=== PATIENT | male | born 1990 | race Caucasian/White ===

== ENCOUNTER → 2019-03-17 14:13 | Outpatient (CLI) | payer OTHER, SELFPAY ==
[2019-03-17 14:52] LABS: Hematocrit 44.1 % (40-54); Mean Corpuscular Hgb 29.9 pg (27.0-32.0); Mean Corpuscular Volume 87.8 fL (80-94); Mean Platelet Vol. 9.1 fl (6.2-12.0); Platelet Count 245 K/mm3 (150-450); RBC Distribution Width CV 12.6 % (11.6-14.6); RBC Distribution Width SD 40.3 fl (35.1-43.9); Red Blood Count 5.02 M/mm3 (4.6-6.2); White Blood Count 8.8 K/mm3 (4.4-11.0)
[2019-03-17 15:14] LABS: AST(SGOT) 12 U/L (15-37); Alanine Aminotransfer ALT/SGPT 31 U/L (16-61); Albumin, Serum 4.1 g/dL (3.2-5.0); Alkaline Phosphatase 82 U/L (45-117); Anion Gap 4 (5-15); BUN 15 mg/dL (7-18); BUN/Creat Ratio 14.7 RATIO (10-20); Bilirubin, Direct 0.09 mg/dL (0.00-0.30); Calcium,Total 8.6 mg/dL (8.5-10.1); Chloride 110 mmol/L (98-107); Creatinine, Serum 1.02 mg/dL (0.70-1.30); EST Glomerular Filtration Rate 92 mL/min (>60); Est Glom Filt Rate - Afr Amer 111 mL/min (>60); Globulin 4.1 g/dL (2.2-4.2); Glucose 88 mg/dL (74-106); Potassium 3.4 mmol/L (3.5-5.1); Protein, Total 8.2 g/dL (6.4-8.2); Sodium Level 138 mmol/L (136-145)
[2019-03-21 17:20] LABS: Topiramate 4.2 ug/mL (2.0-25.0)
== END ==
PROVIDERS: Family Provider Family Medicine; PCP Family Medicine; Referring Provider Nurse Practitioner Family; Visit Provider Nurse Practitioner Family
DX: R56.9 Unspecified convulsions (principal)
CPT/HCPCS: 36415; 80048; 80076; 80201; 85027

== ENCOUNTER 2020-12-12 10:50 | Outpatient (RCR) | payer OTHER, SELFPAY ==
[2014-08-17 13:33] VITALS: BMI 22.8
== END 2021-02-04 23:59 ==
LOC: IMMUN 10:50
PROVIDERS: PCP Family Medicine; Referring Provider Family Medicine; Visit Provider Family Medicine
DX: Z23 Encounter for immunization (principal)
CPT/HCPCS: 0001A; 0002A; 91300

== ENCOUNTER 2023-11-27 14:20 | Emergency (ER) | payer OTHER, SELFPAY ==
[2023-11-27 14:22] VITALS: BP 138/90; PULSE 90; RESP 16; TEMP 36.3; O2SAT 98; BMI 29.7
[2023-11-27 14:32] VITALS: O2SAT 99
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
== END 2023-11-27 15:32 | disposition home or self-care (01) ==
PROVIDERS: Emergency Provider Emergency Medicine; PCP Family Medicine; Visit Provider Emergency Medicine
DX: S30.1XXA Contusion of abdominal wall, initial encounter (principal); V43.62XA Car passenger injured in collision with other type car in traffic accident, initial encounter; W22.10XA Striking against or struck by unspecified automobile airbag, initial encounter; Y92.410 Unspecified street and highway as the place of occurrence of the external cause
CPT/HCPCS: 99282

== ENCOUNTER 2025-04-14 05:21 | Emergency (ER) | payer OTHER, SELFPAY ==
[2025-04-14 05:22] VITALS: BP 150/84; PULSE 96; RESP 20; TEMP 36.7; O2SAT 99; BMI 30.2
--- NOTE | 2025-04-14 05:32 | ED.VIS.DYS ---
HPI History of Present Illness Chief Complaint: Asthma Informant: patient Narrative Narrative: Patient woke up this morning within the last hour to coughing, wheezing, feel like his asthma is flared up which he has a history of. He denies any fevers or chills. No obvious etiology or chemical inhalation. No chest discomfort, neck discomfort, headache, GI symptoms, peripheral swelling. He tried to use his albuterol inhaler but the medication part of it was missing, so he has no treatment at home hence coming to the ER. No known sick contacts. [facility] Medical History Asthma History of kidney stones Seizures Home Medications ?Medication ?Instructions ?Recorded ?Last Taken ?Type sertraline 100 mg tablet 150 mg PO QDAY 02/27/25 Unknown History topiramate 100 mg tablet 100 mg PO BID 02/27/25 Unknown History topiramate 50 mg tablet 50 mg PO BID 02/27/25 Unknown History lamotrigine 25 mg tablet 25 mg PO .COMPLEX #180 tabs 03/01/25 Unknown Rx omeprazole 20 mg capsule,delayed 20 mg PO DAILY 04/14/25 Unknown History release prednisone 20 mg tablet 40 mg (2 x 20 mg) PO DAILY 5 days 04/14/25 Unknown Rx #10 tabs Allergy/AdvReac Type Severity Reaction Status Date / Time latex Allergy Mild Hives Verified 02/27/25 08:02 Family History (Updated 02/27/25 @ 08:06 by Sintia Shirley) Mother Heart disease valve repair Father Heart disease Social History household members: spouse and children current occupational status: employed 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 pets and animals: Yes pets and animals: cat(s) Smoking Status: Never smoker Electronic Cigarette Use: not used alcohol intake: never caffeine: No do you feel safe at home: Yes ROS ROS ED Constitutional Constitutional ED: Denies chills or fever(s) Eyes Eyes: Denies change in vision or diplopia ENT ENT ED: Denies rhinorrhea or sore throat Cardiovascular Cardiovascular: Denies chest pain, leg edema, palpitations or syncope Respiratory/Chest Respiratory/Chest: Reports cough, dyspnea and wheezing; Denies sputum Gastrointestinal Gastrointestinal: Denies abdominal pain, diarrhea, nausea or vomiting Genitourinary Genitourinary ED: Denies dysuria or hematuria Musculoskeletal Musculoskeletal: Denies back pain or neck pain Integumentary Denies abscess or rash Neurologic Neurologic: Denies headache(s), paresthesias or weakness Psychiatric Psychiatric: Denies anxiety or suicidal thoughts EXAM Physical Exam Const Vital Signs: 04/14/25 05:22 04/14/25 05:25 04/14/25 05:37 Temperature 98.1 F Temperature Source Oral Pulse Rate 96 87 Respiratory Rate 20 H 16 Respiratory Depth Normal Respiratory Pattern Tachypnea Normal Blood Pressure 150/84 H Blood Pressure Mean 106 Pulse Ox 99 Oxygen Delivery Method Room Air Room Air 04/14/25 06:39 Temperature 98.1 F Temperature Source Pulse Rate 97 Respiratory Rate 14 Respiratory Depth Respiratory Pattern Blood Pressure 140/76 H Blood Pressure Mean 97 Pulse Ox 100 Oxygen Delivery Method Positive well nourished and well developed General Appearance ED: well developed and NAD HEENT Reports moist mucous membranes normocephalic and atraumatic Eyes PERRL and EOMs intact bilaterally Neck full ROM and supple Resp Resp Narrative: Normal respiratory effort unless has a bronchospasm. Expiratory wheezes with coughing only all lung fontanez otherwise clear and equal. Cardio regular rate, regular rhythm and no murmurs GI non-tender and non-distended Auscultation: normoactive bowel sounds Palpation: soft Back/Spine no CVA tenderness General Back: other FROM Extremity normal to inspection General Extremety ED: Negative for edema, pulses abnormal or tenderness General Extremity: Negative for edema or pulses abnormal Neuro oriented x3, CN's II-XII intact bilaterally and no sensory deficits noted Sensorium / Orientation: awake and alert Motor Exam: strength 5/5 throughout Skin no rashes or lesions noted and no wounds MDM MDM MDM Narrative Medical decision making narrative: Patient was given a couple nebulizer treatments which really helped open him up and make him feel better. Endometrium a two-view chest x-ray was obtained and on my interpretation shows no evidence of pneumonia or pneumothorax. Radiology in agreement. 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 He was also given an inhaler so he has a rescue inhaler to use at home. Radiography Diagnostic Testing: Clinical Impression(s) from Imaging Studies Chest X-Ray 04/14/25 06:23 IMPRESSION: Hyperexpanded lungs, possibly secondary to small airway disease/asthma. [facility] T[facility] Chief Complaint: Asthma ED Provider: Watson Wayne Dx/Rx/DC Orders Clinical Impression: Acute asthma exacerbation, Acute cough Instructions: ED Asthma, Acute (Adult) Prescriptions: New prednisone 20 mg tablet 40 mg PO DAILY 5 Days Qty: 10 0RF No Action topiramate 100 mg tablet 100 mg PO BID topiramate 50 mg tablet 50 mg PO BID sertraline 100 mg tablet 150 mg PO QDAY omeprazole 20 mg capsule,delayed release(DR/EC) 20 mg PO DAILY lamotrigine 25 mg tablet 25 mg PO .COMPLEX Qty: 180 3RF Rx Instructions: Take 1 tab PO BID x7 days then 2 tabs BID x 14 days then 3 tablets twice daily thereafter. Stand Alone Forms: ED Work / School Excuse Primary Care Provider: Edson Tran Referrals: Edson Tran MD [Primary Care Provider] - 1 Week if not improving Print Language: Romanian Disposition Disposition: Home, Self Care Discharge Date/Time: 04/14/25 06:40
[2025-04-14 05:37] VITALS: PULSE 87; RESP 16
[2025-04-14] MEDS: Albuterol 2.5 MG/3 ML VIAL.NEB. INHALATION (05:37)
--- OUTSIDE RECORDS SUMMARY | 2025-04-14 05:40 | XMS RPT_ITS | CCD ---
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 other refills are due, in the near future, with this provider at this time: Yes NOTE; PATIENT NEUROLOGIST HAS MOVED TO [place]. CAN PCP PRESCRIBE THIS MEDICATION? The last office visit in the department: 09/13/2023 Does the patient have a future office visit with this provider/department: Yes Requested Prescriptions Pending Prescriptions Disp Refills topiramate (TOPAMAX) 100 mg tablet 180 tablet 1 Sig: Take 1 tablet by mouth two times a day. topiramate (TOPAMAX) 50 mg tablet 180 tablet 1 Sig: Take 1 tablet by mouth two times a day. Cheryl Tan February 05, 2025 9:15 AM documented in this encounter [facility] 02-06-2025 Telephone encounter Note Patient calling to inform Dr. Khan that he has an appt with [facility] on 02/27/25. Asking for provider to refill his medications to last him until then. Patient would like a call back with an update. Tashia Beltre RN T [facility] 02-06-2025 Telephone encounter Note Patient stopped by and advised he did go to [facility] and they have are getting the patient's records and as soon as provider reviews they will schedule. Patient was told it could be May but they will try to get him in sooner. Patient did go to the pharmacy and they had given him a emergency supply he is out again. Mary Beth Smith MA T [facility] 02-06-2025 Telephone encounter Note Patient calls and message below reviewed. Patient reports that Dr. Burgos didn't give him any notice and the office is closed and phone number is no longer in service. Patient is calling to see if he can get in with [facility] and asking if provider would fill prescription until able to be seen by a new provider. Patient to call back once has neurology appt set up. Hellen Payne RN T [facility] 02-05-2025 Telephone encounter Note Advise patient he needs to contact the office Dr. Burgos was in to see who is taking over his care and refilling his meds. [facility] 02-05-2025 Telephone encounter Note Sent my chart to patient. Mary Beth Smith MA [facility] 02-05-2025 Telephone encounter Note Prescription Refill Information The patient has been identified by name and date of : Yes Caregiver verified no other encounters exist for this prescription request: Yes Caregiver confirmed with patient/requestor that no other refills are due, in the near future, with this provider at this time: Yes NOTE; PATIENT NEUROLOGIST HAS MOVED TO [place]. CAN PCP PRESCRIBE THIS MEDICATION? The last office visit in the department: 09/13/2023 Does the patient have a future office visit with this provider/department: Yes Requested Prescriptions Pending Prescriptions Disp Refills topiramate (TOPAMAX) 100 mg tablet 180 tablet 1 Sig: Take 1 tablet by mouth two times a day. topiramate (TOPAMAX) 50 mg tablet 180 tablet 1 Sig: Take 1 tablet by mouth two times a day. Cheryl Tan February 05, 2025 9:15 AM [facility] 09-13-2024 Note HNO ID: [id number] Author: EDEL KHAN MD Service: ? Author Type: Physician Type: Progress Notes Filed: 09/13/2024 16:53 Note Text: Chief Complaint Patient presents with: Physical HPI Natali Gray is a 33 year old male who presents here today for Physical. Patient with hx of GERD, Seizures seeing Neuro, Asthma, PRESLEY, as well as those reviewed and addressed below and in ROS. Patient has been doing ok. Continues to see Neuro for management of his seizures. No new issues or concerns. Past medical history, appointments, medications, allergies reviewed. Previous Medical History PAST MEDICAL HISTORY Diagnosis Date Attention deficit disorder without mention of hyperactivity PRESLEY (generalized anxiety disorder) 11/08/2020 GERD without esophagitis 11/08/2020 History of kidney stones 03/04/2016 Kidney stone 07/2014 [facility] ER, CT left 2 mm distal ureteral [...] gums normal, oropharynx normal. Neck: Supple, no (more content not included)... [facility] 09-13-2024 History of Presen t illness Narrative Chief Complaint Patient presents with: Physical HPI Natali Gray is a 33 year old male who presents here today for Physical. Patient with hx of GERD, Seizures seeing Neuro, Asthma, PRESLEY, as well as those reviewed and addressed below and in ROS. Patient has been doing ok. Continues to see Neuro for management of his seizures. No new issues or concerns. Past medical history, appointments, medications, allergies reviewed. Previous Medical History PAST MEDICAL HISTORY Diagnosis Date Attention deficit disorder without mention of hyperactivity PRESLEY (generalized anxiety disorder) 11/08/2020 GERD without esophagitis 11/08/2020 History of kidney stones 03/04/2016 Kidney stone 07/2014 [facility] ER, CT left 2 mm distal ureteral [...] Wt 100.7 kg (222 lb) BMI 30.53 kg/m BP 112/68 Pulse 82 Resp 18 Ht 181.6 cm (5' 11.5) Wt 100.7 kg (222 lb) BMI 30.53 kg/m Last 5 Encounter Wt Readings: Date: Wt: [...] and benefit of weight loss. BMI 30.53 kg/(m^2) - Patient counseled on and acknowledged vaccine [...] medications - Avoidance of triggers recommended 4. PRESLEY (generalized anxiety disorder) - ICD9: 300.02, ICD10: [...] TRIVALENT (AFLURIA, FLULAVAL, FLUVIRIN, FLUZONE): given - DJZ COVID-19 VACCINE AGE 12+ YR (COMIRNATY): given [...] or sooner if issues. Edel Khan MD documented in this encounter [facility] 07-05-2024 History of Presen t illness Narrative Radiology Service Progress Note PATIENT NAME: Natali Gray DATE OF SERVICE: July 05, 2024 TIME: [...] PATIENT PRESENTS WITH AN IMPLANTABLE OR ATTACHED CUTTER APPRENTICE HAND: No RADIOLOGY DEPARTMENT: General X-ray: Exam(s) Completed: Chest X-Ray PERIPHERAL IV DATA: Not applicable SIGNED BY: RT Anibal(Amira) July 05, 2024 11:18 AM documented in this encounter [facility] 07-05-2024 Note HNO ID: [id number] Author: ALEJANDRA MCNAMARA RT(Amira) Service: Radiology Author Type: Technologist Type: Progress Notes Filed: 07/05/2024 11:23 Note Text: Radiology Service Progress Note PATIENT NAME: Natali Gray DATE OF SERVICE: July 05, 2024 TIME: [...] PATIENT PRESENTS WITH AN IMPLANTABLE OR ATTACHED CUTTER APPRENTICE HAND: No RADIOLOGY DEPARTMENT: General X-ray: Exam(s) Completed: Chest X-Ray PERIPHERAL IV DATA: Not applicable SIGNED BY: RT Anibal(R) July 05, 2024 11:18 AM [facility] 07-05-2024 Note HNO ID: [id number] Author: ROBERTA SMITH APRN.CAREER BASED INTERVENTION COORDINATOR Service: ? Author Type: Nurse Practitioner Type: Progress Notes Filed: 07/05/2024 11:40 Note Text: CC: Patient presents with: Chest Congestion: cough x 4 days HPI: Natali Gray is a 33 year old male who [...] Attention deficit disorder without mention of hyperactivity PRESLEY (generalized anxiety disorder) 11/08/2020 GERD without esophagitis 11/08/2020 History of kidney stones 03/04/2016 Kidney stone 07/2014 [facility] ER, CT left 2 mm distal ureteral [...] and infrahilar reticular opacities suspect for bronchopneumonia.. Supervisor Aircraft Cleaning: RAUL Transcribe Date/Time: Jul 05 2024 11:23A [...] Patient agreeable to treatment plan. Roberta Smith APRN.[facility] 07-05-2024 History of Presen t illness Narrative CC: Patient presents with: Chest Congestion: cough x 4 days HPI: Natali Gray is a 33 year old male who [...] BP 136/80 Pulse (!) 122 Temp 37.5 C (99.5 F) Resp 16 Wt 99.8 kg (220 lb 0.3 oz) SpO2 96% BMI 30.69 kg/m General appearance: alert, cooperative, pleasant, in no [...] Attention deficit disorder without mention of hyperactivity PRESLEY (generalized anxiety disorder) 11/08/2020 GERD without esophagitis 11/08/2020 History of kidney stones 03/04/2016 Kidney stone 07/2014 [facility] ER, CT left 2 mm distal ureteral [...] * EXAMINATION: CHEST RADIOGRAPH (2 VIEW FRONTAL & LATERAL) CLINICAL HISTORY: Acute cough MQ: [id number] EXAM DATE/TIME: 07/05/2024 11:22 AM COMPARISON: Remote chest x-ray dated 10/31/2007 RESULT: Lines, tubes, and devices: None. Lungs and pleura: Left infrahilar reticular opacities suspect for bronchopneumonia.. No pleural effusion. No pneumothorax. Cardiomediastinal silhouette: Normal cardiomediastinal silhouette. Bones and soft tissues: No acute abnormality. IMPRESSION IMPRESSION: Left and infrahilar reticular opacities suspect for bronchopneumonia.. Supervisor Aircraft Cleaning: RAUL Transcribe Date/Time: Jul 05 2024 11:23A [...] Patient agreeable to treatment plan. Roberta Smith APRN.[facility] documented in this encounter [facility] 04-10-2024 Telephone encounter Note Prescription Refill Information The patient has been identified by name and date of : Yes Caregiver verified no other encounters exist for this prescription request: Yes Caregiver confirmed with patient/requestor that no other refills are due, in the near future, with this provider at this time: Yes The last office visit in the department: 08/2023 Does the patient have a future office visit with this provider/department: Yes 08/2024 Last refill: 08/2023 Requested Prescriptions Pending Prescriptions Disp Refills sertraline (ZOLOFT) 100 mg tablet 135 tablet 1 Sig: Take 1.5 tablets by mouth once daily. Mary Beth Smith MA April 10, 2024 10:31 AM [facility] 04-10-2024 Miscellaneous Notes Prescription Refill Information The patient has been identified by name and date of : Yes Caregiver verified no other encounters exist for this prescription request: Yes Caregiver confirmed with patient/requestor that no other refills are due, in the near future, with this provider at this time: Yes The last office visit in the department: 08/2023 Does the patient have a future office visit with this provider/department: Yes 08/2024 Last refill: 08/2023 Requested Prescriptions Pending Prescriptions Disp Refills sertraline (ZOLOFT) 100 mg tablet 135 tablet 1 Sig: Take 1.5 tablets by mouth once daily. Mary Beth Smith MA April 10, 2024 10:31 AM documented in this encounter [facility] 05-20-2023 Miscellaneous Notes Pt called and is notified of providers message and instructions. Pt voices understanding. Deya Beverly RN Received notification from [facility] for suspect kidney stone. I will send in 3 day script for pain medication as well as script for flomax which can help pass the stone. He should follow up with our office if symptoms worsen or go to ER over the weekend. Lisa Andres PA-C documented in this encounter [facility] 05-20-2023 History of Presen t illness Narrative Subjective HPI HPI Natali T Isaac is a 32 year old male who presents today for CC of right back/flank pain. This started 2 days ago. Has tried otc medication for relief. Symptoms are worsened by nothing. Risk factors hx of renal stones, this feels like renal stone per patient. .Patient presents with: Back Pain: Lower right side x 2 days PAST MEDICAL HISTORY Diagnosis Date Attention deficit disorder without mention of hyperactivity PRESLEY (generalized anxiety disorder) 11/08/2020 GERD without esophagitis 11/08/2020 History of kidney stones 03/04/2016 Kidney stone 07/2014 [facility] ER, CT left 2 mm distal ureteral stone, passed PMH - PAST MEDICAL HISTORY OF 11/23/1994 normal color vision Seizure disorder (HCC) 04/24/2014 PAST SURGICAL HISTORY Procedure Laterality Date PAST SURGICAL HISTORY OF wisdom teeth extraction PAST SURGICAL HISTORY OF 2018 forskin band clipped due to Phymosis ALLERGIES ? Latex [Other] and Enviromental [Other] MEDICATIONS naproxen (NAPROSYN) 500 mg tablet Take 1 tablet by mouth twice daily as needed. Take with food. sertraline (ZOLOFT) 100 mg tablet Take 1.5 tablets by mouth once daily. topiramate (TOPAMAX) 100 mg tablet Take 1 tablet by mouth twice daily. topiramate (TOPAMAX) 50 mg tablet Take 1 tablet by mouth twice daily. albuterol HFA (PROVENTIL HFA, VENTOLIN HFA) 90 mcg/actuation inhaler Inhale 2 Puffs as instructed every 6 hours as needed. (Patient not taking: Reported on 05/20/2023) FAMILY HISTORY Problem Relation Age of Onset [...] to 2nd hand smoke Vaping Use Vaping Use: Never used Substance Use Topics Alcohol use: Yes Comment: occassionally Drug use: No Review of Systems Constitutional: Negative for chills, fever and weight loss. Respiratory: Negative for cough, shortness of breath and wheezing. Cardiovascular: Negative for chest pain and palpitations. Gastrointestinal: Negative for abdominal pain, blood in stool, constipation, diarrhea, heartburn, melena, nausea and vomiting. Genitourinary: Positive for flank pain. Negative for dysuria, frequency, hematuria and urgency. Musculoskeletal: Negative for myalgias. Objective Blood pressure 148/86, pulse 68, temperature 36.6 C (97.8 F), resp. rate 20, weight 92 kg (202 lb 12.8 oz), SpO2 97 %. Physical Exam Constitutional: General: He is not in acute distress. Appearance: Normal appearance. He is not toxic-appearing. Cardiovascular: Rate and Rhythm: Normal rate and regular rhythm. Heart sounds: Normal heart sounds. Pulmonary: Effort: Pulmonary effort is normal. Breath sounds: Normal breath sounds. Abdominal: General: Bowel sounds are normal. Palpations: Abdomen is soft. Tenderness: There is no abdominal tenderness. There is right CVA tenderness. Skin: General: Skin is warm and dry. ASSESSMENT/PLAN: 1. Urination frequency - ICD9: 788.41, ICD10: R35.0 acute - UA positive for hematuria - notified pcp, will send medication Patient not toxic or in severe pain, if worsening s/s occur go to Er. - UA DIP, URINE (POC) Jayden Bautista APRN.CAREER BASED INTERVENTION COORDINATOR documented in this encounter [facility] 03-27-2023 Miscellaneous Notes ----- Message from Flavio Lowery MD sent at 03/27/2023 8:08 AM EDT ----- Xray negative for fracture or dislocation. Message left for patient to return call or see [employer] message for results. ----- Message from Flavio Lowery MD sent at 03/27/2023 8:08 AM EDT ----- Xray negative for fracture or dislocation. documented in this encounter [facility] 03-23-2023 History of Presen t illness Narrative Radiology Service Progress Note PATIENT NAME: Natali Gray DATE OF SERVICE: March 23, 2023 TIME: 3:20 PM PATIENT IDENTITY VERIFICATION COMPLETED USING TWO (2) IDENTIFIERS: Name and Date of confirmed by patient verbally. FALL SCREENING: Has the patient had 2 falls in the last year or 1 fall with injury or currently using an Ambulatory Assistive Device (Walker, Cane, Wheelchair, Crutches, etc.)? No PATIENT GENDER DATA: Male PATIENT RELEVANT IMPLANT DATA REVIEWED: Yes RADIOLOGY DEPARTMENT: General X-ray: Exam(s) Completed: Upper Extremity X-Ray(s): Shoulder, AP / TRUE AP / AXILLARY right and Wrist, right PERIPHERAL IV DATA: Not applicable SIGNED BY: RT Yogesh(R) March 23, 2023 3:20 PM documented in this encounter [facility] 02-25-2023 Miscellaneous Notes The following approved medication requests have been transmitted electronically. Requested Prescriptions Signed Prescriptions Disp Refills sertraline (ZOLOFT) 100 mg tablet 135 tablet 1 Sig: Take 1.5 tablets by mouth once daily. Authorizing Provider: EDEL KHAN MD Last office visit: 07/01/22 F/u scheduled: 03/04/23 Juana Salamanca Ma Patient has been identified by name and date of : Yes Requested Prescriptions Pending Prescriptions Disp Refills sertraline (ZOLOFT) 100 mg tablet 135 tablet 1 Sig: Take 1.5 tablets by mouth once daily. RX INSTRUCTIONS: Patient aware RX will be sent to pharmacy. No need to notify patient. Elizabeth Chapa Pss documented in this encounter [facility] 07-01-2022 Instructions Edel Khan MD - 07/01/2022 5:[address] Khan Know how you are doing with the zoloft change in 3-4 weeks via My Chart. documented in this encounter [facility] 07-01-2022 History of Earlene t illness Narrative Chief Complaint Patient presents with: Physical HPI Natali Gray is a 31 year old male who presents here today for Physical. Patient with hx of GERD, Seizures seeing Neuro, Asthma, PRESLEY, as well as those reviewed and addressed below and in ROS. Patient has noted some slight increase in depression but feeling like his anxiety is more uncontrolled. Past medical history, appointments, medications, allergies reviewed. Previous Medical History PAST MEDICAL HISTORY Diagnosis Date Attention deficit disorder without mention of hyperactivity PRESLEY (generalized anxiety disorder) 11/08/2020 GERD without esophagitis 11/08/2020 History of kidney stones 03/04/2016 Kidney stone 07/2014 [facility] ER, CT left 2 mm distal ureteral stone, passed PMH - PAST MEDICAL HISTORY OF 11/23/1994 normal color vision Seizure disorder (HCC) 04/24/2014 Previous Surgical History PAST SURGICAL HISTORY Procedure Laterality Date PAST SURGICAL HISTORY OF wisdom teeth extraction PAST SURGICAL HISTORY OF 2018 forskin band clipped due to Phymosis Family History FAMILY HISTORY Problem Relation Age of Onset Seizures Mother Hypertension Father Lipids Father Post-Traumatic Stress Disorder Father other (GERD) Father Psychiatry Brother depression Depression Brother Cancer Maternal Grandmother None Maternal Grandmother Cancer Maternal Grandfather lung Stroke Paternal Grandmother Prostate Cancer Paternal Grandfather Stroke Paternal Uncle Patient Allergies ALLERGIES Allergen Reactions ? Latex [Other] Rash Enviromental [Other] Unknown Current Medications Current Outpatient Medications on File Prior to Visit Medication Sig topiramate (TOPAMAX) 100 mg tablet Take 1 tablet by mouth twice daily. topiramate (TOPAMAX) 50 mg tablet Take 1 tablet by mouth twice daily. sertraline (ZOLOFT) 100 mg tablet Take 1 tablet by mouth once daily. omeprazole (PRILOSEC) 40 mg capsule Take 1 capsule by mouth daily before breakfast. 1/2 hr before meal. albuterol HFA (PROVENTIL HFA, VENTOLIN HFA) 90 mcg/actuation inhaler Inhale 2 Puffs as instructed every 6 hours as needed. No current facility-administered medications on file prior to visit. Social History Social History Tobacco Use Smoking status: Never Smokeless tobacco: Never Tobacco comments: exposed to 2nd hand smoke Vaping Use Vaping Use: Never used Substance Use Topics Alcohol use: Yes Comment: [...] No nausea, vomiting, or diarrhea and No frequent heartburn or reflux symptoms : No history of dysuria, blood MUSCULOSKELETAL: Negative for joint pain or swelling, back pain or muscle pain SKIN: Negative for lesions, rash, and itching PSYCH: See HPI HEMATOLOGY/LYMPHOLOGY: Negative for prolonged bleeding, bruising easily or swollen nodes ENDOCRINE: Negative for cold or heat intolerance, polyuria, polydipsia and goiter NEURO: No history of syncope, paralysis, seizures or tremors. EXAM: BP 150/80 (BP Site: Right Arm, BP Position: Sitting, BP Cuff Size: Regular Adult) Pulse 80 Resp 16 Wt 91.6 kg (202 lb) BMI 28.28 kg/m BP 136/72 Pulse 80 Resp 16 Wt 91.6 kg (202 lb) BMI 28.28 kg/m General Appearance: Well appearing, alert, in no acute distress, well-hydrated, well nourished.. Skin: Skin color, texture, turgor normal, no suspicious rashes or lesions. Head: Normocephalic, no masses, lesions, tenderness or abnormalities. Eyes: Anicteric sclera. Pupils are equally round and reactive to light. Extraocular movements are intact. . Ears: External ears normal, canals clear. Neck: Supple, no adenopathy; thyroid symmetric, normal [...] to palpation. No hernia.. Health Maintenance List PNEUMOCOCCAL(1 - PCV) Never done DEPRESSION ASSESSMENT Never done COVID-19 VACCINE(4 - Booster for Pfizer series) due on 02/06/2022 INFLUENZA(1) due on 04/30/2022 ANNUAL PCP TEAM CHRONIC DISEASE VISIT due on 12/12/2022 DTAP,TDAP,TD(8 - Td or Tdap) due on 05/23/2024 HEPATITIS B Completed SPIROMETRY Discontinued HEPATITIS C SCREENING Discontinued HIV SCREENING Discontinued Data reviewed A/P ASSESSMENT/PLAN: 1. Well adult exam - ICD9: V70.0, ICD10: Z00.00 (primary diagnosis) - Counseled on healthy diet and regular exercise - Patient was counseled [id number] by myself (the billing provider) for the following immunizations and vaccine components, including side effects: Influenza and Pneumococcal . Patient consents for immunization and understands risks and benefits. A VIS sheet on each immunization was given to the patient. - Follow up for annual exam in one year 2. GERD without esophagitis - ICD9: 530.81, ICD10: K21.9 - cont prn meds. 3. Mild intermittent asthma without complication - ICD9: 493.90, ICD10: J45.20 Mild intermittent Asthma stable - Avoidance of triggers recommended 4. PRESLEY (generalized anxiety disorder) - ICD9: 300.02, ICD10: F41.1 Will increase zoloft to 150 mg a day. Patient to update me in 3-4 weeks via My Chart. - SERTRALINE 100 MG TABLET 5. Seizure disorder (HCC) - ICD9: 345.90, ICD10: G40.909 - management per neurology 6. Screening for diabetes mellitus (DM) - ICD9: V77.1, ICD10: Z13.1 Check A1c 7. Medication management - ICD9: V58.69, ICD10: Z79.899 - check CBC 8. Encounter for lipid screening for cardiovascular disease - ICD9: V77.91, V81.2, ICD10: Z13.220, Z13.6 Check Lipid 9. Encounter for immunization - ICD9: V03.89, ICD10: Z23 - INFLUENZA VACCINE QUADRIVALENT 6 MO - 64 YRS IM: given - PNEUMOCOCCAL VACCINE (PREVNAR 20): given F/u in 6 months routine Edel Khan MD documented in this encounter [facility] 12-12-2021 History of Presen t illness Narrative This note was created using Wrappter. Subjective Patient presents with: Medication Follow-up Natali Gray is a 31 year old male patient of Edel Khan MD here for medication refill. His anxiety was generally controlled, and his dose has been stable. He had no side effects. We reviewed health maintenance and he was willing to have his Covid booster vaccine today. Review of Systems Constitutional: Negative. Psychiatric/Behavioral: Negative. ACTIVE PROBLEM LIST Seizure Disorder (Hcc) Asthma, Mild Intermittent History of Chicken Pox Well Adult Exam Screening for Diabetes Mellitus (Dm) History of Kidney Stones Presley (Generalized Anxiety Disorder) Gerd Without Esophagitis Medication Management Current Outpatient Medications Medication Sig topiramate (TOPAMAX) 100 mg tablet Take 1 tablet by mouth twice daily. topiramate (TOPAMAX) 50 mg tablet Take 1 tablet by mouth twice daily. sertraline (ZOLOFT) 100 mg tablet Take 1 tablet by mouth once daily. albuterol HFA (PROVENTIL HFA, VENTOLIN HFA) 90 mcg/actuation inhaler Inhale 2 Puffs as instructed every 6 hours as needed. ibuprofen (MOTRIN) 800 mg tablet Take 800 mg by mouth every 6 hours as needed. omeprazole (PRILOSEC) 40 mg capsule Take 1 capsule by mouth daily before breakfast. 1/2 hr before meal. No current facility-administered medications for this visit. Objective BP 136/78 Pulse 73 Temp 36.3 C (97.3 F) (Temporal) Resp 16 Wt 88.9 kg (196 lb) SpO2 97% BMI 27.44 kg/m Physical Exam Constitutional: Appearance: Normal appearance. He is not ill-appearing. Psychiatric: Mood and Affect: Mood normal. Behavior: Behavior normal. Thought Content: Thought content normal. PRESLEY-7 ANXIETY SCALE 12/12/2021 FEELING NERVOUS,ANXIOUS,OR ON EDGE 1 Several days NOT BEING ABLE TO STOP OR CONTROL WORRYING 2 Over half the days WORRYING TOO MUCH ABOUT DIFFERENT THINGS 1 Several days TROUBLE RELAXING 0 Not at all sure BEING SO RESTLESS THAT IT'S HARD TO SIT STILL 0 Not at all sure BEING EASILY ANNOYED OR IRRITABLE 2 Over half the days FEELING AFRAID IF SOMETHING AWFUL MIGHT HAPPEN 1 Several days GAD7 SCORE 7 IF YOU CHECKED OFF ANY PROBLEMS Somewhat difficult Assessment and Plan 1. PRESLEY (generalized anxiety disorder) - ICD9: 300.02, ICD10: F41.1 (primary diagnosis) Continue current dose. - SERTRALINE 100 MG TABLET 2. Need for COVID-19 vaccine - ICD9: V04.89, ICD10: Z23 - PFIZER-BIONTECH COVID-19 VACCINE, AGE 12+ YR (CORDOVA TOP) Tyrell Bravo MD documented in this encounter [facility] Evaluation note Diagnosis PRESLEY (generalized anxiety disorder)- Primary Generalized anxiety disorder Need for COVID-19 vaccine [facility] Well adult exam- Primary Routine general medical examination at a health care facility GERD without esophagitis Esophageal reflux Mild intermittent asthma without complication Unspecified asthma PRESLEY (generalized anxiety disorder) Generalized anxiety disorder Seizure disorder (HCC) Unspecified epilepsy without mention of intractable epilepsy Screening for diabetes mellitus (DM) Screening for diabetes mellitus Medication management Encounter for long-term (current) use of other medications Encounter for lipid screening for cardiovascular disease Screening for lipoid disorders Encounter for immunization Need for other specified prophylactic vaccination against single bacterial disease [facility] Diagnosis PRESLEY (generalized anxiety disorder) Generalized anxiety disorder [facility] Diagnosis Microscopic hematuria- Primary Renal stone Calculus of kidney [facility] Diagnosis Urination frequency- Primary Urinary frequency [facility] noteNo assessment information availableWSelect [facility] [place] Work Phone: [facility] note* Diagnosis PRESLEY (generalized anxiety disorder) Generalized anxiety disorder [facility] Diagnosis Acute pain of right shoulder Wrist pain, right Pain in joint, forearm [facility] Acute cough- Primary Sore throat Acute pharyngitis Bacterial pneumonia Bacterial pneumonia, unspecified Acute cough [facility] Diagnosis Acute cough documented in this encounter [facility]* Diagnosis Well adult exam- Primary Routine general medical examination at a health care facility GERD without esophagitis Esophageal reflux Mild intermittent asthma without complication Unspecified asthma PRESLEY (generalized anxiety disorder) Generalized anxiety disorder Seizure disorder (HCC) Unspecified epilepsy without mention of intractable epilepsy Screening for depression Need for vaccination Need for prophylactic vaccination and inoculation against unspecified single disease Encounter for immunization Need for other specified prophylactic vaccination against single bacterial disease Medication management Encounter for long-term (current) use of other medications Screening for diabetes mellitus (DM) Screening for diabetes mellitus Encounter for lipid screening for cardiovascular disease Screening for lipoid disorders documented in this encounter [facility] note* Diagnosis Onset Date Resolution Status Admit Date Seizures acute February 27, 2025 7:52am Seizure disorder noneactive February 7:52am [facility] Work Phone: Hospital Discharge instructions Additional Instructions Please return for any worsening of your symptoms. You can take Tylenol and ibuprofen for pain as needed.[facility] Work Phone: Reason for referral (narrative)* Diagnostic Procedure Only (Routine) - Closed Specialty Diagnoses / Procedures Referred By Conttessie deng Referred To Contact XR IMAGING Diagnoses Wrist pain, right Procedures XR WRIST GENERAL 3V PA/LAT/OBL RIGHT RADEX WRIST COMPLETE MINIMUM 3 VIEWS Flavio Lowery MD [address] [place] [address] [facility] [place] [address] Referral ID Status Reason Start Date Expiration Date V isits Requested Visits Authorized [id number] Closed Auto-Generate d Referral 03/23/2023 04/21/2024 1 1 * Diagnostic Procedure Only (Routine) - Closed Specialty Diagnoses / Procedures Referred By Kit deng Referred To Contact XR IMAGING Diagnoses Acute pain of right shoulder Procedures XR SHOULDER GENERAL 3V OR MORE AP/TRUE AP/OTHER RIGHT RADEX SHOULDER COMPLETE MINIMUM 2 VIEWS Flavio Lowery MD [address] [place] [address] [place] [address] Referral ID Status Reason Start Date Expiration Date V isits Requested Visits Authorized [id number] Closed Auto-Generate d Referral 03/23/2023 04/21/2024 1 1 [facility])No reason for referral information availableLavinia Antenna Services Work Phone: Reason for visit Narrative* Diagnostic Procedure Only (Routine) - Closed Specialty Diagnoses / Procedures Referred By Kit t Referred To Contact XR IMAGING Diagnoses Wrist pain, right Procedures XR WRIST GENERAL 3V PA/LAT/OBL RIGHT RADEX WRIST COMPLETE MINIMUM 3 VIEWS Flavio Lowery MD [address] [place] [address] [place] [address] Referral ID Status Reason Start Date Expiration Date V isits Requested Visits Authorized [id number] Closed Auto-Generate d Referral 03/23/2023 04/21/2024 1 1 [facility] Advance Directives No Advanced Directives Records FoundDocuments on File Type Date Recorded 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 Expl 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 Advance Directive(s) 09/16/2018 5:45 AM Advance Directive Response Recorded Date/ Time Living Will No 2023 2:30pm Power of Inbound Ingredient Logistics Specialist No November 26 2:30pm Reason for Referral Specialty Diagnoses / Procedures Referred By Kit deng Referred To Contact Diagnoses Microscopic hematuria Renal stone Lisa Andres PA-C [address] [place] [address] Referral ID Status Reason Start Date Expiration Date Visits Re quested Visits Authorized [id number] Closed 1 1 Chief Complaint and Reason for Visit Chief Complaint MV Chief Complaint Admit Date Seizure February 27, 2025 7:52a m Reason for Visit Admit Date Seizures February 27, 2025 7:52a m Seizure disorder February 27, 2025 7:52a m Summary Purpose Family History No Family History Records Found Relationship Condition Age at Onset Recorded Date/T fang mother Cardiac disease Unknown father Cardiac disease Unknown Additional Source Comments Source Comments (unrecognize d section and content) In the event this informatio n is protected by the Federal Confidentiality of Alcohol and Drug Abuse Patient Records regulations: The Federal rules restrict any use of the information to criminally investigate or prosecute any alcohol or drug abuse patient.[facility] the event this information is protected by the Federal Confidentiality of Alcohol and Drug Abuse Patient Records regulations: The Federal rules restrict any use of the information to criminally investigate or prosecute any alcohol or drug abuse patient.[facility] the event this information is protected by the Federal Confidentiality of Alcohol and Drug Abuse Patient Records regulations: The Federal rules restrict any use of the information to criminally investigate or prosecute any alcohol or drug abuse patient.[facility] the event this information is protected by the Federal Confidentiality of Alcohol and Drug Abuse Patient Records regulations: The Federal rules restrict any use of the information to criminally investigate or prosecute any alcohol or drug abuse patient.[facility] Hospital[facility] the event this information is protected by the Federal Confidentiality of Alcohol and Drug Abuse Patient Records regulations: The Federal rules restrict any use of the information to criminally investigate or prosecute any alcohol or drug abuse patient.[facility] the event this information is protected by the Federal Confidentiality of Alcohol and Drug Abuse Patient Records regulations: The Federal rules restrict any use of the information to criminally investigate or prosecute any alcohol or drug abuse patient.[facility] the event this information is protected by the Federal Confidentiality of Alcohol and Drug Abuse Patient Records regulations: The Federal rules restrict any use of the information to criminally investigate or prosecute any alcohol or drug abuse patient.[facility] the event this information is protected by the Federal Confidentiality of Alcohol and Drug Abuse Patient Records regulations: The Federal rules restrict any use of the information to criminally investigate or prosecute any alcohol or drug abuse patient.[facility] the event this information is protected by the Federal Confidentiality of Alcohol and Drug Abuse Patient Records regulations: The Federal rules restrict any use of the information to criminally investigate or prosecute any alcohol or drug abuse patient.[facility] the event this information is protected by the Federal Confidentiality of Alcohol and Drug Abuse Patient Records regulations: The Federal rules restrict any use of the information to criminally investigate or prosecute any alcohol or drug abuse patient.[facility] the event this information is protected by the Federal Confidentiality of Alcohol and Drug Abuse Patient Records regulations: The Federal rules restrict any use of the information to criminally investigate or prosecute any alcohol or drug abuse patient.[facility] HospitalIn the event this information is protected by the Federal Confidentiality of Alcohol and Drug Abuse Patient Records regulations: The Federal rules restrict any use of the information to criminally investigate or prosecute any alcohol or drug abuse patient.[facility] Reason for Visit (unrecogniz ed section and content) Reason Comments Medication Follow-up Reason Comments Physical Reason Onset Date Comments Refill Request 02/25/2023 Reason Comments Results Reason Comments Orders Reason Comments Back Pain Lower right side x 2 days Reason Onset Date Comments Refill Request 04/09/2024 Reason Comments Chest Congestion cough x 4 days Reason Comments Refill Request Care Teams (unrecognized sec tion and content) Filter Cloth Maker Relationship Specialty Start Date End Date Edel Khan MD [address] [place] [address] PCP - General Family Practice 08/21/14 Filter Cloth Maker Relationship Specialty Start Date End Date Edel Khan MD [address] [place], [place] [address] PCP - General Family Medicine 08/21/14 Filter Cloth Maker Relationship Specialty Start Date End Date Edel Khan MD [address] [place], [place] [address] [phone] PCP - General Family Medicine 08/21/14 Filter Cloth Maker Relationship Specialty Start Date End Date Edel Khan MD [address] [place], [place] [address] [phone] PCP - General Family Medicine 08/21/14 Filter Cloth Maker Relationship Specialty Start Date End Date Edel Khan MD [address] [place] [address] PCP - General Family Medicine 08/21/14 Filter Cloth Maker Relationship Specialty Start Date End Date Edel Khan MD [address] [place], [place] [address] [phone] PCP - General Family Medicine 08/21/14 Team Status: Active Member Role Status Dates Dr. Edel Khan MD Family Provider Active Dr. Edel Khan MD Primary Care Provider Active Team Status: Inactive Member Role Status Dates Dr. Edel Khan MD Primary Care Provider Active Dr. Nawaf Crockett DO Emergency Provider Active Filter Cloth Maker Relationship Specialty Start Date End Date Edel Khan MD [address] [facility] [place] [address] PCP - General Family Medicine 08/21/14 Filter Cloth Maker Relationship Specialty Start Date End Date Edel Khan MD [address] [place] [address] PCP - [facility] Family Medicine 08/21/14 Filter Cloth Maker Relationship Specialty Start Date End Date Edel Khan MD [address] [place] [address] PCP - General Family Medicine 08/21/14 Filter Cloth Maker Relationship Specialty Start Date End Date Edel Khan MD [address] [place] [address] PCP - General Family Medicine 08/21/14 Shaila Bolivar, HEIDI.CAREER BASED INTERVENTION COORDINATOR [address] [place] [address] [employer] [facility] 08/05/24 Lisa Andres PA-C [address] [facility] [place] [address] [employer] [facility] 08/05/24 Filter Cloth Maker Relationship Specialty Start Date End Date Edel Khan MD [address] [facility] [place] [address] PCP - General Family Medicine 08/21/14 Shaila Bolivar, HEIDI.CAREER BASED INTERVENTION COORDINATOR [address] [place], [place] [address] [facility] 01/29/25 Lisa Andres PA-C [address] [place], [place] [id number] [facility] 01/29/25 Team Status: Active Member Role/Relationship Status Dates Dr. Edel Khan MD Family Provider Active Dr. Edel Khan MD Primary Care Provider Active Team Status: Inactive Member Role/Relationship Status Dates Dr. Edel Khan MD Primary Care Provider Active Start: February 27, 2025 End: February 27, 2025 Dr. Edel Khan MD Referring Provider Active Start: February 27, 2025 End: February 27, 2025 [facility] Attending Provider Active S tart: February 27, 2025 End: February 27, 2025 Goals (unrecognized section and content) Goals may be documented in a n alternate sectionGoals may be documented in an alternate section (unrecognized sect ion and content) No Status Records FoundNo Status Records Found INFORMATION SOURCE (unrecogn ized section and content) DATE CREATED AUTHOR 09/16/2024 [facility] DATE CREATED AUTHOR AUTHOR'S LILA NORRIS 04/07/2025 [facility] FOR RECORDS PERTAINING TO PATIENTS WHO ARE OR HAVE BEEN ENROLLED IN A CHEMICAL DEPENDENCY/SUBSTANCEABUSE PROGRAM, SOME INFORMATION MAY BE OMITTED. This clinical summary was aggregated from multiple sources. Caution should be exercised in using it in the provision of clinical care. This summary normalizes information from multiple sources, and as a consequence, information in this document may materially change the coding, format and clinical context of patient data. In addition, data may be omitted in some cases. CLINICAL DECISIONS SHOULD BE BASED ON THE PRIMARY CLINICAL RECORDS. [employer] provides no warranty or guarantee of the accuracy or completeness of information in this document.
--- NOTE | 2025-04-14 06:23 | RAD_ITS ---
PROCEDURE: CHEST PA AND LATERAL 04/14/2025 REASON FOR EXAM: COUGH SOB/ASTHMA TECHNIQUE: CHEST PA AND LATERAL COMPARISON: None. FINDINGS: The lungs are hyperexpanded. There is no demonstrated parenchymal abnormality. There is no demonstrated pleural abnormality. Normal heart and pericardium. Normal mediastinum and orly. Normal visualized pulmonary arteries. Normal visualized aortic arch and descending thoracic aorta. Normal visualized thoracic spine. Normal visualized ribs, clavicles, and shoulders. There is no demonstrated abnormality of the visualized soft tissue structures of the upper abdomen. RAD/Chest PA and Lateral IMPRESSION: Hyperexpanded lungs, possibly secondary to small airway disease/asthma. Reading [facility]
[2025-04-14] MEDS: Albuterol Sulfate 8 gm Inhaler (60 puffs) 2 PUFF INHALATION (06:27)
[2025-04-14 06:39] VITALS: BP 140/76; PULSE 97; RESP 14; TEMP 36.7; O2SAT 100
== END 2025-04-14 06:40 | disposition home or self-care (01) ==
PROVIDERS: Emergency Provider Emergency Medicine; PCP Family Medicine; Visit Provider Emergency Medicine
DX: J45.901 Unspecified asthma with (acute) exacerbation (principal)
CPT/HCPCS: 71046; 94640; 99282

== ENCOUNTER → 2025-05-29 | Outpatient (CLI) | payer OTHER, SELFPAY ==
--- OUTSIDE RECORDS SUMMARY | 2024-09-13 16:20 | XMS RPT_ITS ---
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 Author Type: Group Sales Coordinator Type: Progress Notes Filed: 05/29/2025 15:09 Note Text: Scan on 05/29/2025 11:39 AM by Raghu Crowell PA-C: Ammonia Scan on 05/29/2025 11:15 AM by Raghu Crowell PA-C: CMP Scan on 05/29/2025 10:39 AM by Raghu Crowell PA-C: CBCD PROGRESS Observed: 09/13/2024 3:23 PM Status: COMPLETED Source: [facility] HNO ID: [id number] Author: EDEL KHAN MD Service: ? Author Type: Physician Type: Progress Notes Filed: 09/13/2024 16:53 Note Text: Chief Complaint Patient presents with: Physical HPI Natali Snigh is a 33 year old male who presents here today for Physical. Patient with hx of GERD, Seizures seeing Neuro, Asthma, LAWANDA, as well as those reviewed and addressed below and in ROS. Patient has been doing ok. Continues to see Neuro for management of his seizures. No new issues or concerns. Past medical history, appointments, medications, allergies reviewed. Previous Medical History PAST MEDICAL HISTORY Diagnosis Date Attention deficit disorder without mention of hyperactivity LAWANDA (generalized anxiety disorder) 11/08/2020 GERD without esophagitis 11/08/2020 History of kidney stones 03/04/2016 Kidney stone 07/2014 [facility], CT left 2 mm distal ureteral stone, passed PMH - PAST MEDICAL HISTORY OF 11/23/1994 normal color vision Seizure disorder (HCC) 04/24/2014 Previous Surgical History PAST SURGICAL HISTORY Procedure Laterality Date PAST SURGICAL HISTORY OF wisdom teeth extraction PAST SURGICAL HISTORY OF 2018 forskin band clipped due to Phymosis Family History FAMILY HISTORY Problem Relation Age of Onset Seizures Mother Heart Mother had Valve replacement 2021 Hypertension Father Lipids Father Post-Traumatic Stress Disorder Father other (GERD) Father Psychiatry Brother depression Depression Brother Cancer Maternal Grandmother None Maternal Grandmother Cancer Maternal Grandfather lung Stroke Paternal Grandmother Prostate Cancer Paternal Grandfather Stroke Paternal Uncle Patient Allergies ALLERGIES Allergen Reactions Latex Rash Seasonal Allergies Unknown Current Medications Current Outpatient Medications on File Prior to Visit Medication Sig sertraline (ZOLOFT) 100 mg tablet Take 1.5 tablets by mouth once daily. albuterol HFA (PROVENTIL HFA, VENTOLIN HFA) 90 mcg/actuation inhaler Inhale 2 Puffs as instructed every 6 hours as needed. naproxen (NAPROSYN) 500 mg tablet Take 1 tablet by mouth twice daily as needed. Take with food. topiramate (TOPAMAX) 100 mg tablet Take 1 tablet by mouth twice daily. topiramate (TOPAMAX) 50 mg tablet Take 1 tablet by mouth twice daily. tamsulosin (FLOMAX) 0.4 mg Take 1 capsule by mouth daily at bedtime for 5 days. (Patient not taking: Reported on 07/05/2024) No current facility-administered medications on file prior to visit. Social History Social History Tobacco Use Smoking status: Never Smokeless tobacco: Never Tobacco comments: exposed to 2nd hand smoke Vaping Use Vaping status: Never Used Substance Use Topics Alcohol use: Yes Comment: occassionally Drug use: No Review of Symptoms REVIEW OF SYSTEMS GENERAL: No weight loss, malaise or fevers HEENT: Negative for frequent or significant headaches, No changes in hearing or vision, no nose bleeds or other nasal problems NECK: Negative for lumps, goiter, pain and significant neck swelling RESPIRATORY: Negative for cough, hemoptysis, wheezing, COPD, dyspnea or shortness of breath CARDIOVASCULAR: Negative for chest pain, leg swelling, hypertension, CHF or palpitations GI: No nausea, vomiting, or diarrhea and No heartburn or reflux symptoms : No history of dysuria, frequency or blood MUSCULOSKELETAL: Negative for joint pain or swelling, back pain or muscle pain. Right elbow hurts from time to time. SKIN: Negative for lesions, rash, and itching PSYCH: anxiety controlled well with the sertraline. HEMATOLOGY/LYMPHOLOGY: Negative for prolonged bleeding, bruising easily or swollen nodes ENDOCRINE: Negative for cold or heat intolerance, polyuria, polydipsia and goiter NEURO: No history of headaches, syncope, paralysis, seizures or tremors. Has noted some numbness on the top medial side of the left foot the past few days. EXAM: BP 118/88 Pulse 82 Resp 18 Ht 181.6 cm (5' 11.5) Wt 100.7 kg (222 lb) BMI 30.53 kg/m? BP 112/68 Pulse 82 Resp 18 Ht 181.6 cm (5' 11.5) Wt 100.7 kg (222 lb) BMI 30.53 kg/m? Last 5 Encounter Wt Readings: Date: Wt: 09/13/2024 100.7 kg (222 lb) 07/05/2024 99.8 kg (220 lb 0.3 oz) 09/13/2023 98.9 kg (218 lb) 05/20/2023 92 kg (202 lb 12.8 oz) 03/23/2023 90.3 kg (199 lb) General Appearance: Well appearing, alert, in no acute distress, well-hydrated, well nourished.. Skin: Skin color, texture, turgor normal, no suspicious rashes or lesions. Head: Normocephalic, no masses, lesions, tenderness or abnormalities. Eyes: Anicteric sclera. Pupils are equally round and reactive to light. Extraocular movements are intact. . Ears: External ears normal, canals clear. Nose/Sinuses: Nares normal, septum midline, mucosa normal, no drainage or sinus tenderness. Oropharynx: Lips, mucosa, and tongue normal, teeth and gums normal, oropharynx normal. Neck: Supple, no adenopathy; thyroid symmetric, normal size, no bruits. Lungs: Lungs clear to auscultation. No wheezing, rhonchi, rales.. Heart: RRR without murmur, gallop, or rubs. No ectopy. Abdomen: Normal abdominal exam, Abdomen soft, non-tender. Bowel sounds normal. No masses, organomegaly. Extremities: No deformities, edema, skin discoloration, Good capillary refill. . Musculoskeletal: Spine range of motion normal. Muscular strength intact, No joint swelling, deformity, or tenderness. Peripheral Pulses: Normal. Neurologic: Gait normal. Reflexes normal and symmetric. Sensation to light touch and crainal nerves 2-12 intact.. Genitalia: Normal, Penis normal. No urethral discharge. Scrotum normal to palpation. No hernia.. Health Maintenance List Depression Screening Never done Influenza Vaccine(1) due on 04/30/2024 Covid-19 Vaccine(5 - 2023- season) due on 04/30/2024 DTaP,Tdap,Td Vaccine(8 - Td or Tdap) due on 05/23/2024 Annual PCP Team Chronic Disease Visit due on 09/13/2024 Hepatitis B Vaccine Completed HPV Vaccine Aged Out Spirometry Discontinued Hepatitis C Screening Discontinued HIV Screening Discontinued Data reviewed A/P ASSESSMENT/PLAN: 1. Well adult exam - ICD9: V70.0, ICD10: Z00.00 (primary diagnosis) - Counseled on healthy diet and regular exercise - Discussed need for and benefit of weight loss. BMI 30.53 kg/(m2) - Patient counseled on and acknowledged vaccine benefits/risks/side effects; VIS provided: COVID-19, Influenza, and TdaP - Follow up for annual exam in one year - HEMOGLOBIN A1C - LIPID PANEL, NONFASTING 2. GERD without esophagitis - ICD9: 530.81, ICD10: K21.9 - controlled with diet and prn med. 3. Mild intermittent asthma without complication - ICD9: 493.90, ICD10: J45.20 - Mild intermittent asthma stable - Continue current medications - Avoidance of triggers recommended 4. LAWANDA (generalized anxiety disorder) - ICD9: 300.02, ICD10: F41.1 Cont - SERTRALINE 100 MG TABLET 5. Seizure disorder (HCC) - ICD9: 345.90, ICD10: G40.909 - on meds and managed per Neuro 6. Screening for depression - ICD9: V79.0, ICD10: Z13.31 - DEPRESSION SCREENING 7. Need for vaccination - ICD9: V05.9, ICD10: Z23 - TDAP VACCINE, AGE 7+ YR (ADACEL, BOOSTRIX): given 8. Encounter for immunization - ICD9: V03.89, ICD10: Z23 - INFLUENZA VACCINE, AGE 6MO-64YR, TRIVALENT (AFLURIA, FLULAVAL, FLUVIRIN, FLUZONE): given - [employer] COVID-19 VACCINE AGE 12+ YR (COMIRNATY): given 9. Medication management - ICD9: V58.69, ICD10: Z79.899 Check - COMPREHENSIVE METABOLIC PANEL - THYROID STIMULATING HORMONE - COMPLETE BLOOD COUNT AND DIFFERENTIAL 10. Screening for diabetes mellitus (DM) - ICD9: V77.1, ICD10: Z13.1 Check - HEMOGLOBIN A1C 11. Encounter for lipid screening for cardiovascular disease - ICD9: V77.91, V81.2, ICD10: Z13.220, Z13.6 Check - LIPID PANEL, NONFASTING F/u in a year or sooner if issues. Edel Khan MD CNOV Observed: 09/13/2024 3:20 PM Status: COMPLETED Source: [facility] Office Visit (FAMPWS) ISAACNATALI ([id number]) 1990 M Date Time Provider Department 09/13/24 3:20 PM EDEL KHANWS During your visit today, we recorded the following information about you: Pulse Respiration Blood pressure Weight 82/minute 18/minute 112/68 100.7 kg Height 1.816 m Edel Khan MD 09/13/2024 4:53 PM Signed Chief Complaint Patient presents with: Physical HPI Natali Montoya Isaac is a 33 year old male who presents here today for Physical. Patient with hx of GERD, Seizures seeing Neuro, Asthma, LAWANDA, as well as those reviewed and addressed below and in ROS. Patient has been doing ok. Continues to see Neuro for management of his seizures. No new issues or concerns. Past medical history, appointments, medications, allergies reviewed. Previous Medical History PAST MEDICAL HISTORY Diagnosis Date Attention deficit disorder without mention of hyperactivity LAWANDA (generalized anxiety disorder) 11/08/2020 GERD without esophagitis 11/08/2020 History of kidney stones 03/04/2016 Kidney stone 07/2014 [facility] ER, CT left 2 mm distal ureteral stone, passed PMH - PAST MEDICAL HISTORY OF 11/23/1994 normal color vision Seizure disorder (HCC) 04/24/2014 Previous Surgical History PAST SURGICAL HISTORY Procedure Laterality Date PAST SURGICAL HISTORY OF wisdom teeth extraction PAST SURGICAL HISTORY OF 2018 forskin band clipped due to Phymosis Family History FAMILY HISTORY Problem Relation Age of Onset Seizures Mother Heart Mother had Valve replacement 2021 Hypertension Father Lipids Father Post-Traumatic Stress Disorder Father other (GERD) Father Psychiatry Brother depression Depression Brother Cancer Maternal Grandmother None Maternal Grandmother Cancer Maternal Grandfather lung Stroke Paternal Grandmother Prostate Cancer Paternal Grandfather Stroke Paternal Uncle Patient Allergies ALLERGIES Allergen Reactions Latex Rash Seasonal Allergies Unknown Current Medications Current Outpatient Medications on File Prior to Visit Medication Sig sertraline (ZOLOFT) 100 mg tablet Take 1.5 tablets by mouth once daily. albuterol HFA (PROVENTIL HFA, VENTOLIN HFA) 90 mcg/actuation inhaler Inhale 2 Puffs as instructed every 6 hours as needed. naproxen (NAPROSYN) 500 mg tablet Take 1 tablet by mouth twice daily as needed. Take with food. topiramate (TOPAMAX) 100 mg tablet Take 1 tablet by mouth twice daily. topiramate (TOPAMAX) 50 mg tablet Take 1 tablet by mouth twice daily. tamsulosin (FLOMAX) 0.4 mg Take 1 capsule by mouth daily at bedtime for 5 days. (Patient not taking: Reported on 07/05/2024) No current facility-administered medications on file prior to visit. Social History Social History Tobacco Use Smoking status: Never Smokeless tobacco: Never Tobacco comments: exposed to 2nd hand smoke Vaping Use Vaping status: Never Used Substance Use Topics Alcohol use: Yes Comment: occassionally Drug use: No Review of Symptoms REVIEW OF SYSTEMS GENERAL: No weight loss, malaise or fevers HEENT: Negative for frequent or significant headaches, No changes in hearing or vision, no nose bleeds or other nasal problems NECK: Negative for lumps, goiter, pain and significant neck swelling RESPIRATORY: Negative for cough, hemoptysis, wheezing, COPD, dyspnea or shortness of breath CARDIOVASCULAR: Negative for chest pain, leg swelling, hypertension, CHF or palpitations GI: No nausea, vomiting, or diarrhea and No heartburn or reflux symptoms : No history of dysuria, frequency or blood MUSCULOSKELETAL: Negative for joint pain or swelling, back pain or muscle pain. Right elbow hurts from time to time. SKIN: Negative for lesions, rash, and itching PSYCH: anxiety controlled well with the sertraline. HEMATOLOGY/LYMPHOLOGY: Negative for prolonged bleeding, bruising easily or swollen nodes ENDOCRINE: Negative for cold or heat intolerance, polyuria, polydipsia and goiter NEURO: No history of headaches, syncope, paralysis, seizures or tremors. Has noted some numbness on the top medial side of the left foot the past few days. EXAM: BP 118/88 Pulse 82 Resp 18 Ht 181.6 cm (5' 11.5) Wt 100.7 kg (222 lb) BMI 30.53 kg/m? BP 112/68 Pulse 82 Resp 18 Ht 181.6 cm (5' 11.5) Wt 100.7 kg (222 lb) BMI 30.53 kg/m? Last 5 Encounter Wt Readings: Date: Wt: 09/13/2024 100.7 kg (222 lb) 07/05/2024 99.8 kg (220 lb 0.3 oz) 09/13/2023 98.9 kg (218 lb) 05/20/2023 92 kg (202 lb 12.8 oz) 03/23/2023 90.3 kg (199 lb) General Appearance: Well appearing, alert, in no acute distress, well-hydrated, well nourished.. Skin: Skin color, texture, turgor normal, no suspicious rashes or lesions. Head: Normocephalic, no masses, lesions, tenderness or abnormalities. Eyes: Anicteric sclera. Pupils are equally round and reactive to light. Extraocular movements are intact. . Ears: External ears normal, canals clear. Nose/Sinuses: Nares normal, septum midline, mucosa normal, no drainage or sinus tenderness. Oropharynx: Lips, mucosa, and tongue normal, teeth and gums normal, oropharynx normal. Neck: Supple, no adenopathy; thyroid symmetric, normal size, no bruits. Lungs: Lungs clear to auscultation. No wheezing, rhonchi, rales.. Heart: RRR without murmur, gallop, or rubs. No ectopy. Abdomen: Normal abdominal exam, Abdomen soft, non-tender. Bowel sounds normal. No masses, organomegaly. Extremities: No deformities, edema, skin discoloration, Good capillary refill. . Musculoskeletal: Spine range of motion normal. Muscular strength intact, No joint swelling, deformity, or tenderness. Peripheral Pulses: Normal. Neurologic: Gait normal. Reflexes normal and symmetric. Sensation to light touch and crainal nerves 2-12 intact.. Genitalia: Normal, Penis normal. No urethral discharge. Scrotum normal to palpation. No hernia.. Health Maintenance List Depression Screening Never done Influenza Vaccine(1) due on 04/30/2024 Covid-19 Vaccine(5 - 2023- season) due on 04/30/2024 DTaP,Tdap,Td Vaccine(8 - Td or Tdap) due on 05/23/2024 Annual PCP Team Chronic Disease Visit due on 09/13/2024 Hepatitis B Vaccine Completed HPV Vaccine Aged Out Spirometry Discontinued Hepatitis C Screening Discontinued HIV Screening Discontinued Data reviewed A/P ASSESSMENT/PLAN: 1. Well adult exam - ICD9: V70.0, ICD10: Z00.00 (primary diagnosis) - Counseled on healthy diet and regular exercise - Discussed need for and benefit of weight loss. BMI 30.53 kg/(m2) - Patient counseled on and acknowledged vaccine benefits/risks/side effects; VIS provided: COVID-19, Influenza, and TdaP - Follow up for annual exam in one year - HEMOGLOBIN A1C - LIPID PANEL, NONFASTING 2. GERD without esophagitis - ICD9: 530.81, ICD10: K21.9 - controlled with diet and prn med. 3. Mild intermittent asthma without complication - ICD9: 493.90, ICD10: J45.20 - Mild intermittent asthma stable - Continue current medications - Avoidance of triggers recommended 4. LAWANDA (generalized anxiety disorder) - ICD9: 300.02, ICD10: F41.1 Cont - SERTRALINE 100 MG TABLET 5. Seizure disorder (HCC) - ICD9: 345.90, ICD10: G40.909 - on meds and managed per Neuro 6. Screening for depression - ICD9: V79.0, ICD10: Z13.31 - DEPRESSION SCREENING 7. Need for vaccination - ICD9: V05.9, ICD10: Z23 - TDAP VACCINE, AGE 7+ YR (ADACEL, BOOSTRIX): given 8. Encounter for immunization - ICD9: V03.89, ICD10: Z23 - INFLUENZA VACCINE, AGE 6MO-64YR, TRIVALENT (AFLURIA, FLULAVAL, FLUVIRIN, FLUZONE): given - [employer] COVID-19 VACCINE AGE 12+ YR (COMIRNATY): given 9. Medication management - ICD9: V58.69, ICD10: Z79.899 Check - COMPREHENSIVE METABOLIC PANEL - THYROID STIMULATING HORMONE - COMPLETE BLOOD COUNT AND DIFFERENTIAL 10. Screening for diabetes mellitus (DM) - ICD9: V77.1, ICD10: Z13.1 Check - HEMOGLOBIN A1C 11. Encounter for lipid screening for cardiovascular disease - ICD9: V77.91, V81.2, ICD10: Z13.220, Z13.6 Check - LIPID PANEL, NONFASTING F/u in a year or sooner if issues. Edel Khan MD Allergies As of Date: 09/13/2024 Noted Allergy Reaction LATEX 09/13/2023 2 - Rash SEASONAL ALLERGIES 09/13/2023 16 - Unknown Date Reviewed: 09/13/2024 Reviewed by: Edel Khan MD - Fully Assessed Reason for Visit: Physical [83] Primary Visit Diagnosis:Well adult exam [Z00.00] Other Visit Diagnoses:GERD without esophagitis [K21.9] Mild intermittent asthma without complication [J45.20] LAWANDA (generalized anxiety disorder) [F41.1] Seizure disorder (HCC) [G40.909] Screening for depression [Z13.31] Need for vaccination [Z23] Encounter for immunization [Z23] Medication management [Z79.899] Screening for diabetes mellitus (DM) [Z13.1] Encounter for lipid screening for cardiovascular disease [Z13.220, Z13.6] Order(s):sertraline (ZOLOFT) 100 mg tabletTake 1.5 tablets by mouth once daily.Disp: 135 tabletRfl: 1 INFLUENZA VACCINE, AGE 6MO-64YR, TRIVALENT (AFLURIA, FLULAVAL, FLUVIRIN, FLUZONE) [[id number]] Order #: [id number] [employer] COVID-19 VACCINE AGE 12+ YR (COMIRNATY) [[id number]] Order #: [id number] TDAP VACCINE, AGE 7+ YR (ADACEL, BOOSTRIX) [[id number]] Order #: [id number] DEPRESSION SCREENING [2306787] Order #: [id number]: 1 COMPREHENSIVE METABOLIC PANEL [SQCMP] Order #: [id number] FUTURE HEMOGLOBIN A1C [USTMW9I] Order #: [id number] FUTURE THYROID STIMULATING HORMONE [SQTSH] Order #: [id number] FUTURE LIPID PANEL, NONFASTING [SQLIPNF] Order #: [id number] FUTURE COMPLETE BLOOD COUNT AND DIFFERENTIAL [SQCBCDIF] Order #: [id number] FUTURE Prescriptions as of 09/13/2024 - sertraline (ZOLOFT) 100 mg tablet Take 1.5 tablets by mouth once daily. - albuterol HFA (PROVENTIL HFA, VENTOLIN HFA) 90 mcg/actuation inhaler Inhale 2 Puffs as instructed every 6 hours as needed. - naproxen (NAPROSYN) 500 mg tablet Take 1 tablet by mouth twice daily as needed. Take with food. - topiramate (TOPAMAX) 100 mg tablet Take 1 tablet by mouth twice daily. - topiramate (TOPAMAX) 50 mg tablet Take 1 tablet by mouth twice daily. Problem List As Of Date 09/13/2024 Noted Resolved Seizure disorder (HCC) [G40.909] 04/24/2014 Asthma, mild intermittent [J45.20] 05/23/2014 History of chicken pox [Z86.19] 05/23/2014 Well adult exam [Z00.00] 05/23/2014 Screening for diabetes mellitus (DM) [Z13.1] 05/23/2014 History of kidney stones [Z87.442] 03/04/2016 LAWANDA (generalized anxiety disorder) [F41.1] 11/08/2020 GERD without esophagitis [K21.9] 11/08/2020 Medication management [Z79.899] 05/16/2021 Encounter for lipid screening for cardiovascula*09/13/2024 Prescriptions ordered this encounter Disp Refills Start End SERTRALINE 100 MG TABLET 135 * 1 09/13/2024 Route: ORAL Sig: Take 1.5 tablets by mouth once daily. Medications Discontinued During This Encounter Prescriptions - tamsulosin (FLOMAX) 0.4 mg (Discontinued) Reported on 07/05/2024 - sertraline (ZOLOFT) 100 mg tablet (Discontinued) Take 1.5 tablets by mouth once daily. Disposition: Return in about 1 year (around 09/13/2025) for complete PE with me. Follow-up and Disposition History for Encounter Date Provider Department Center 09/13/2024 [id number] KHAN [facility] Encounter Status:Closed by CHERELLE SMITH on 09/13/24 XR CHEST 2V FRONTAL/LAT Observed: 2023 11:22 AM Status: F Source: [facility] * * *Final Report* * * DATE OF EXAM: Jul 05 2024 11:22AM WOX [id number] - XR CHEST 2V FRONTAL/LAT / PROCEDURE REASON: Acute cough * * * * Physician Interpretation * * * * EXAMINATION: CHEST RADIOGRAPH (2 VIEW FRONTAL and LATERAL) CLINICAL HISTORY: Acute cough MQ: [id number] EXAM DATE/TIME: 07/05/2024 11:22 AM COMPARISON: Remote chest x-ray dated 10/31/2007 RESULT: Lines, tubes, and devices: None. Lungs and pleura: Left infrahilar reticular opacities suspect for bronchopneumonia.. No pleural effusion. No pneumothorax. Cardiomediastinal silhouette: Normal cardiomediastinal silhouette. Bones and soft tissues: No acute abnormality. IMPRESSION: Left and infrahilar reticular opacities suspect for bronchopneumonia.. 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[employer] Transcribe Date/Time: Jul 05 2024 11:23A Dictated by : VIRGILIO CANDELARIA MD This examination was interpreted and the report reviewed and electronically signed by: VIRGILIO CANDELARIA MD on Jul 05 2024 11:24AM EST [id number] PROGRESS Observed: 07/05/2024 11:20 AM Status: COMPLETED Source: [facility] HNO ID: [id number] Author: RAMONA MCNAMARA RT(Amira) Service: Radiology Author Type: Technologist Type: Progress Notes Filed: 07/05/2024 11:23 Note Text: Radiology Service Progress Note PATIENT NAME: Natali Singh DATE OF SERVICE: July 05, 2024 TIME: 11:18 AM PATIENT IDENTITY VERIFICATION COMPLETED USING TWO (2) IDENTIFIERS: Name and Date of confirmed by patient verbally. FALL SCREENING: Has the patient had 2 falls in the last year or 1 fall with injury or currently using an Ambulatory Assistive Device (Walker, Cane, Wheelchair, Crutches, etc.)? No PATIENT GENDER DATA: Male PATIENT RELEVANT IMPLANT DATA REVIEWED: Not Applicable PATIENT PRESENTS WITH AN IMPLANTABLE OR ATTACHED CHIEF EXECUTIVE OR MANAGING DIRECTOR: No RADIOLOGY DEPARTMENT: General X-ray: Exam(s) Completed: Chest X-Ray PERIPHERAL IV DATA: Not applicable SIGNED BY: RT Anibal(Amira) July 05, 2024 11:18 AM PROGRESS Observed: 07/05/2024 11:04 AM Status: COMPLETED Source: [facility] HNO ID: [id number] Author: ROBERTA SMITH APRN.DIRECTOR IT Service: ? Author Type: Nurse Practitioner Type: Progress Notes Filed: 07/05/2024 11:40 Note Text: CC: Patient presents with: Chest Congestion: cough x 4 days HPI: Natali Singh is a 33 year old male who presents to the office with complaint of respiratory symptoms, chest congestion, and cough, nonproductive for a few days. Symptoms are staying the same. Associated symptoms includes dyspnea. Denies nausea, vomiting , and diarrhea. Treatments tried include nothing so far. with no relief of symptoms. Sick contacts: unknown. History of asthma, frequent episodes of bronchitis, chronic bronchitis, bronchiectasis or COPD: No Smoker: No Seasonal/environmental allergies: No The ROS is otherwise negative. The patient's pmh, medications, allergies, and past visits are reviewed. PHYSICAL EXAM: BP 136/80 Pulse (!) 122 Temp 37.5 ?C (99.5 ?F) Resp 16 Wt 99.8 kg (220 lb 0.3 oz) SpO2 96% BMI 30.69 kg/m? General appearance: alert, cooperative, pleasant, in no acute distress Head: Normocephalic Eyes: EOM's intact, conjunctiva pink and moist, no icterus, sclera white, non-injected Ears: Right ear: External ear/canal- Normal, TM - clear with good landmarks. Left ear: External ear/canal- Normal, TM - clear with good landmarks Oropharynx:moist without lesions, No erythema, exudates or tonsillar hypertrophy. Heart: Negative. RRR without obvious murmur, gallop, or rubs. No ectopy. Lungs: clear to auscultation, without rales or wheeze, good air exchange PAST MEDICAL HISTORY Diagnosis Date Attention deficit disorder without mention of hyperactivity LAWANDA (generalized anxiety disorder) 11/08/2020 GERD without esophagitis 11/08/2020 History of kidney stones 03/04/2016 Kidney stone 07/2014 [facility], CT left 2 mm distal ureteral stone, passed PMH - PAST MEDICAL HISTORY OF 11/23/1994 normal color vision Seizure disorder (HCC) 04/24/2014 PAST SURGICAL HISTORY Procedure Laterality Date PAST SURGICAL HISTORY OF wisdom teeth extraction PAST SURGICAL HISTORY OF 2018 forskin band clipped due to Phymosis ALLERGIES Latex and Seasonal Allergies MEDICATIONS sertraline (ZOLOFT) 100 mg tablet Take 1.5 tablets by mouth once daily. albuterol HFA (PROVENTIL HFA, VENTOLIN HFA) 90 mcg/actuation inhaler Inhale 2 Puffs as instructed every 6 hours as needed. naproxen (NAPROSYN) 500 mg tablet Take 1 tablet by mouth twice daily as needed. Take with food. topiramate (TOPAMAX) 100 mg tablet Take 1 tablet by mouth twice daily. topiramate (TOPAMAX) 50 mg tablet Take 1 tablet by mouth twice daily. tamsulosin (FLOMAX) 0.4 mg Take 1 capsule by mouth daily at bedtime for 5 days. (Patient not taking: Reported on 07/05/2024) FAMILY HISTORY Problem Relation Age of Onset Seizures Mother Heart Mother had Valve replacement 2021 Hypertension Father Lipids Father Post-Traumatic Stress Disorder Father other (GERD) Father Psychiatry Brother depression Depression Brother Cancer Maternal Grandmother None Maternal Grandmother Cancer Maternal Grandfather lung Stroke Paternal Grandmother Prostate Cancer Paternal Grandfather Stroke Paternal Uncle Social History Tobacco Use Smoking status: Never Smokeless tobacco: Never Tobacco comments: exposed to 2nd hand smoke Vaping Use Vaping status: Never Used Substance Use Topics Alcohol use: Yes Comment: occassionally Drug use: No ASSESSMENT/PLAN: 1. Acute cough - ICD9: 786.2, ICD10: R05.1 (primary diagnosis) - XR CHEST 2V FRONTAL/LAT * * * * Physician Interpretation * * * * EXAMINATION: CHEST RADIOGRAPH (2 VIEW FRONTAL AND LATERAL) CLINICAL HISTORY: Acute cough MQ: XC2_6 EXAM DATE/TIME: 07/05/2024 11:22 AM COMPARISON: Remote chest x-ray dated 10/31/2007 RESULT: Lines, tubes, and devices: None. Lungs and pleura: Left infrahilar reticular opacities suspect for bronchopneumonia.. No pleural effusion. No pneumothorax. Cardiomediastinal silhouette: Normal cardiomediastinal silhouette. Bones and soft tissues: No acute abnormality. IMPRESSION IMPRESSION: Left and infrahilar reticular opacities suspect for bronchopneumonia.. Retail Marketing Manager: RAUL Transcribe Date/Time: Jul 05 2024 11:23A Dictated by : VIRGILIO CANDELARIA MD 2. Sore throat - ICD9: 462, ICD10: J02.9 - STREP A MOLECULAR (POC) -neg 3. Bacterial pneumonia - ICD9: 482.9, ICD10: J15.9 - AZITHROMYCIN 250 MG TABLET Prescription instructions reviewed with patient as applicable. Potential red flag symptoms discussed with the patient. Reviewed appropriate action plan to take if red flag symptoms occur. Patient agreeable to treatment plan. Roberta Smith APRN.DIRECTOR IT CNOV Observed: 07/05/2024 11:00 AM Status: COMPLETED Source: [facility] Office Visit ([facility]) NATALI SINGH ([id number]) 1990 M Date Time Provider Department 07/05/24 11:00 AM [facility] During your visit today, we recorded the following information about you: Temperature Pulse Respiration Blood pressure 99.5 degrees 122/minute 16/minute 136/80 Weight 99.8 kg Roberta Smith APRN.LISSETH 07/05/2024 11:40 AM Signed CC: Patient presents with: Chest Congestion: cough x 4 days HPI: Natali Singh is a 33 year old male who presents to the office with complaint of respiratory symptoms, chest congestion, and cough, nonproductive for a few days. Symptoms are staying the same. Associated symptoms includes dyspnea. Denies nausea, vomiting , and diarrhea. Treatments tried include nothing so far. with no relief of symptoms. Sick contacts: unknown. History of asthma, frequent episodes of bronchitis, chronic bronchitis, bronchiectasis or COPD: No Smoker: No Seasonal/environmental allergies: No The ROS is otherwise negative. The patient's pmh, medications, allergies, and past visits are reviewed. PHYSICAL EXAM: BP 136/80 Pulse (!) 122 Temp 37.5 ?C (99.5 ?F) Resp 16 Wt 99.8 kg (220 lb 0.3 oz) SpO2 96% BMI 30.69 kg/m? General appearance: alert, cooperative, pleasant, in no acute distress Head: Normocephalic Eyes: EOM's intact, conjunctiva pink and moist, no icterus, sclera white, non-injected Ears: Right ear: External ear/canal- Normal, TM - clear with good landmarks. Left ear: External ear/canal- Normal, TM - clear with good landmarks Oropharynx:moist without lesions, No erythema, exudates or tonsillar hypertrophy. Heart: Negative. RRR without obvious murmur, gallop, or rubs. No ectopy. Lungs: clear to auscultation, without rales or wheeze, good air exchange PAST MEDICAL HISTORY Diagnosis Date Attention deficit disorder without mention of hyperactivity LAWANDA (generalized anxiety disorder) 11/08/2020 GERD without esophagitis 11/08/2020 History of kidney stones 03/04/2016 Kidney stone 07/2014 [facility], CT left 2 mm distal ureteral stone, passed PMH - PAST MEDICAL HISTORY OF 11/23/1994 normal color vision Seizure disorder (HCC) 04/24/2014 PAST SURGICAL HISTORY Procedure Laterality Date PAST SURGICAL HISTORY OF wisdom teeth extraction PAST SURGICAL HISTORY OF 2018 forskin band clipped due to Phymosis ALLERGIES Latex and Seasonal Allergies MEDICATIONS sertraline (ZOLOFT) 100 mg tablet Take 1.5 tablets by mouth once daily. albuterol HFA (PROVENTIL HFA, VENTOLIN HFA) 90 mcg/actuation inhaler Inhale 2 Puffs as instructed every 6 hours as needed. naproxen (NAPROSYN) 500 mg tablet Take 1 tablet by mouth twice daily as needed. Take with food. topiramate (TOPAMAX) 100 mg tablet Take 1 tablet by mouth twice daily. topiramate (TOPAMAX) 50 mg tablet Take 1 tablet by mouth twice daily. tamsulosin (FLOMAX) 0.4 mg Take 1 capsule by mouth daily at bedtime for 5 days. (Patient not taking: Reported on 07/05/2024) FAMILY HISTORY Problem Relation Age of Onset Seizures Mother Heart Mother had Valve replacement 2021 Hypertension Father Lipids Father Post-Traumatic Stress Disorder Father other (GERD) Father Psychiatry Brother depression Depression Brother Cancer Maternal Grandmother None Maternal Grandmother Cancer Maternal Grandfather lung Stroke Paternal Grandmother Prostate Cancer Paternal Grandfather Stroke Paternal Uncle Social History Tobacco Use Smoking status: Never Smokeless tobacco: Never Tobacco comments: exposed to 2nd hand smoke Vaping Use Vaping status: Never Used Substance Use Topics Alcohol use: Yes Comment: occassionally Drug use: No ASSESSMENT/PLAN: 1. Acute cough - ICD9: 786.2, ICD10: R05.1 (primary diagnosis) - XR CHEST 2V FRONTAL/LAT * * * * Physician Interpretation * * * * EXAMINATION: CHEST RADIOGRAPH (2 VIEW FRONTAL AND LATERAL) CLINICAL HISTORY: Acute cough MQ: XC2_6 EXAM DATE/TIME: 07/05/2024 11:22 AM COMPARISON: Remote chest x-ray dated 10/31/2007 RESULT: Lines, tubes, and devices: None. Lungs and pleura: Left infrahilar reticular opacities suspect for bronchopneumonia.. No pleural effusion. No pneumothorax. Cardiomediastinal silhouette: Normal cardiomediastinal silhouette. Bones and soft tissues: No acute abnormality. IMPRESSION IMPRESSION: Left and infrahilar reticular opacities suspect for bronchopneumonia.. Retail Marketing Manager: RAUL Transcribe Date/Time: Jul 05 2024 11:23A Dictated by : VIRGILIO CANDELARIA MD 2. Sore throat - ICD9: 462, ICD10: J02.9 - STREP A MOLECULAR (POC) -neg 3. Bacterial pneumonia - ICD9: 482.9, ICD10: J15.9 - AZITHROMYCIN 250 MG TABLET Prescription instructions reviewed with patient as applicable. Potential red flag symptoms discussed with the patient. Reviewed appropriate action plan to take if red flag symptoms occur. Patient agreeable to treatment plan. Roberta Smith APRN.DIRECTOR IT Allergies As of Date: 07/05/2024 Noted Allergy Reaction LATEX 09/13/2023 2 - Rash SEASONAL ALLERGIES 09/13/2023 16 - Unknown Date Reviewed: 07/05/2024 Reviewed by: Anabel Dent MA - Fully Assessed Reason for Visit: Chest Congestion [236] Cmt: cough x 4 days Primary Visit Diagnosis:Acute cough [R05.1] Other Visit Diagnoses:Sore throat [J02.9] Bacterial pneumonia [J15.9] Order(s):STREP A MOLECULAR (POC) [8300802] Order #: [id number]. #:[id number] [id number] CHEST 2V FRONTAL/LAT [[id number]] Order #: [id number] FUTURE azithromycin (ZITHROMAX) 250 mg tabletTake 2 tablets by mouth once daily for 1 day, THEN 1 tablet once daily for 4 days.Disp: 6 tabletRfl: 0 Prescriptions as of 07/05/2024 - azithromycin (ZITHROMAX) 250 mg tablet Take 2 tablets by mouth once daily for 1 day, THEN 1 tablet once daily for 4 days. - sertraline (ZOLOFT) 100 mg tablet Take 1.5 tablets by mouth once daily. - albuterol HFA (PROVENTIL HFA, VENTOLIN HFA) 90 mcg/actuation inhaler Inhale 2 Puffs as instructed every 6 hours as needed. - tamsulosin (FLOMAX) 0.4 mg Take 1 capsule by mouth daily at bedtime for 5 days. - naproxen (NAPROSYN) 500 mg tablet Take 1 tablet by mouth twice daily as needed. Take with food. - topiramate (TOPAMAX) 100 mg tablet Take 1 tablet by mouth twice daily. - topiramate (TOPAMAX) 50 mg tablet Take 1 tablet by mouth twice daily. Problem List As Of Date 07/05/2024 Noted Resolved Seizure disorder (HCC) [G40.909] 04/24/2014 Asthma, mild intermittent [J45.20] 05/23/2014 History of chicken pox [Z86.19] 05/23/2014 Well adult exam [Z00.00] 05/23/2014 Screening for diabetes mellitus (DM) [Z13.1] 05/23/2014 History of kidney stones [Z87.442] 03/04/2016 LAWANDA (generalized anxiety disorder) [F41.1] 11/08/2020 GERD without esophagitis [K21.9] 11/08/2020 Medication management [Z79.899] 05/16/2021 Prescriptions ordered this encounter Disp Refills Start End AZITHROMYCIN 250 MG TABLET 6 ta* 0 07/05/2024 07/10/2024 Route: ORAL Sig: Take 2 tablets by mouth once daily for 1 day, THEN 1 tablet once daily for 4 days. Letter Text Encounter Status:Closed by ROBERTA SMITH on 07/05/24 ALLERGIES DATE TYPE / CODE NAME / CODE REACTION SEVERITY SOURCE 09/13/2023 DRUG INGREDI/[id number] 3(SNOMED CT) LATEX RASH [facility] 09/13/2023 Environ/[id number] 6(SNOMED CT) SEASONAL ALLERGIES UNKNOWN [facility] ENCOUNTERS ADMIT/DISCHARGE ACCOUNT NUMBER ADMITTING ENCOUNTER CLASS LOC ATION SOURCE 09/13/2024/ 5 [id number] [facility] 07/05/2024/ 4 [id number] [facility] 07/05/2024/ 4 [id number] [facility] PAYERS ENCOUNTER GUARANTOR PAYER SUBSCRIBER SOURCE 09/13/2024 Primary Insurance:ABRAHAM Valentine Number: [id number] Date:[id number] Name:Ye YEPEZ: [id number] [place] [address] [facility] 07/05/2024 Primary Insurance:ABRAHAM Valentine Number: [id number] Date:4410-31-79Oetk Name:Ye Montoya LUCHO: [id number] [place], [place] [id number] [place] [address] 07/05/2024 Primary Insurance:ABRAHAM Valentine Number: [id number] Date:2672-02-20Nbki Name:Ye Montoya LUCHO: [id number] [place] [address] [facility]
[2025-05-29 10:21] LABS: Hematocrit 39.5 % (40-54); Hemoglobin 13.8 g/dL (13.0-16.5); Immature Granulocytes Count 0.000 X10^3/uL (0.0-0.0); Mean Corp Hgb Conc 34.9 g/dL (32-36); Mean Corpuscular Volume 84.0 fL (80-94); Mean Platelet Vol. 9.1 fl (6.2-12.0); NRBC Flagged by Analyzer 0 % (0-5); Platelet Count 242 K/mm3 (150-450); RBC Distribution Width CV 12.5 % (11.6-14.6); RBC Distribution Width SD 38.4 fl (35.1-43.9); Red Blood Count 4.70 M/mm3 (4.6-6.2); White Blood Count 5.6 K/mm3 (4.4-11.0)
[2025-05-29 10:59] LABS: AST(SGOT) 20 U/L (<=37); Alanine Aminotransfer ALT/SGPT 23 U/L (<=46); Albumin, Serum 4.2 g/dL (3.5-5.0); Alkaline Phosphatase 79 U/L (40-129); Anion Gap 11 (5-15); BUN 18 mg/dL (4-19); BUN/Creat Ratio 16.6 RATIO (10-20); Calcium,Total 8.8 mg/dL (7.6-11.0); Carbon Dioxide 20.9 mmol/L (21.0-32.0); Chloride 107 mmol/L (98-108); Globulin 3.0 g/dL (2.2-4.2); Glucose 134 mg/dL (70-99); Magnesium 2.2 mg/dL (1.5-2.2); Potassium 3.7 mmol/L (3.3-5.1)
[2025-05-29 11:02] LABS: Ammonia 42.5 umol/L (16-60)
== END | disposition home or self-care (01) ==
LOC: MTLAB 09:01
PROVIDERS: PCP Family Medicine
DX: R56.9 Unspecified convulsions (principal)
CPT/HCPCS: 36415; 80053; 82140; 82542; 83735; 85025